=== PATIENT | female | born 1960 | race African-American/Black ===

== ENCOUNTER 2018-12-02 22:58 | Inpatient (IN) | payer OTHER, MEDICAID ==
[~2018-12-02] VITALS: Ht 157.5 cm; Wt 71.2 kg
[~2018-12-02 22:58] MED LIST: ASPI-1159 PO; GABA-531 PO; METO25TA6 PO; PHEN100C4 PO; PROAIR
[2018-12-03] MEDS ORDERED: IBUPROFEN 600MG TABLET PO ONE (05:00)
[2018-12-03 06:13] LABS: BASOPHILS % 0.5 % (0.0-2.0); EOSINOPHILS % 2.2 % (0.0-5.0); HEMATOCRIT. 36.7 % (36.0-48.0); HEMOGLOBIN. 12.3 g/dL (12.0-16.0); LYMPHOCYTES % 46.3 % (20.0-50.0); MEAN CORPUSCULAR HEMOGLOBIN 30.5 pg (28.0-32.0); MEAN CORPUSCULAR VOLUME 90.8 fL (81.0-99.0); MONOCYTES % 5.7 % (2.0-8.0); NEUTROPHILS % 45.3 % (40.0-76.0); PLATELET 245 x1000/uL (130-400); RED BLOOD CELL COUNT 4.04 mill/uL (4.2-5.4); RED CELL DISTRIBUTION WIDTH 12.5 % (11.6-14.6)
[2018-12-03 06:19] LABS: CHLORIDE 109 mEq/L (98-107)
[2018-12-03 06:23] LABS: ETHANOL BLOOD < 10 mg/dL
[2018-12-03] MEDS ORDERED: PHENYTOIN SODIUM EXTENDED 100MG CAPSULE PO SCH (06:45)
[2018-12-03] MEDS ORDERED: PHENYTOIN SODIUM EXTENDED 100MG CAPSULE PO ONE (08:00)
[2018-12-03] MEDS ORDERED: IBUPROFEN 600MG TABLET PO PRN (10:45)
[2018-12-03 12:00] VITALS: BP 131/82
[2018-12-03 12:15] VITALS: BP 131/82
[2018-12-03 15:43] LABS: CLARITY URINE CLEAR (CLEAR); COLOR URINE YELLOW (YELLOW); KETONES URINE NEGATIVE (NEGATIVE); LEUKOCYTE ESTERASE URINE NEGATIVE (NEGATIVE); NITRITE URINE NEGATIVE (NEGATIVE); OCCULT BLOOD URINE NEGATIVE (NEGATIVE); PROTEIN URINE NEGATIVE (NEGATIVE); SPECIFIC GRAVITY URINE 1.013 (1.005-1.030)
[2018-12-03 16:00] VITALS: BP 117/66
[2018-12-03 16:27] LABS: *BARBITURATES SCREEN URINE NEGATIVE (NEGATIVE); *BENZODIAZEPINES SCREEN URINE NEGATIVE (NEGATIVE); *COCAINE SCREEN URINE NEGATIVE (NEGATIVE)
[2018-12-03 16:28] LABS: *AMPHETAMINES SCREEN URINE NEGATIVE (NEGATIVE); CANNABINOID URINE SCREEN PRESUMTIVE POSITIVE (NEGATIVE); METHADONE URINE SCREEN NEGATIVE (NEGATIVE); OPIATES URINE SCREEN NEGATIVE (NEGATIVE); PHENCYCLIDINE URINE SCREEN NEGATIVE (NEGATIVE)
[2018-12-03] MEDS: ACETAMINOPHEN 325MG TABLET PO PRN (17:33)
[2018-12-03] MEDS ORDERED: LORAZEPAM 2MG/ML CPJ IV NR (19:15)
[2018-12-03 20:00] VITALS: BP 125/75
[2018-12-03] MEDS ORDERED: LORAZEPAM 2MG/ML CPJ IV PRN (21:00)
[2018-12-03] MEDS: PHENYTOIN SODIUM EXTENDED 100MG CAPSULE PO SCH (22:00)
[2018-12-03] MEDS: METOPROLOL TARTRATE 25MG TABLET PO SCH (22:00)
[2018-12-04] VITALS: BP 130/76
[2018-12-04] MEDS: GABAPENTIN 300MG CAPSULE PO SCH ×4 (00:02→22:40)
[2018-12-04] MEDS: VALPROATE SODIUM 500 MG in SODIUM CHLORIDE 0.9% 100 ML IV SCH ×2 (00:03→09:07)
[2018-12-04 04:00] VITALS: BP 143/76
[2018-12-04 06:58] LABS: CHLORIDE 109 mEq/L (98-107)
[2018-12-04 07:02] LABS: BASOPHILS % 0.4 % (0.0-2.0); EOSINOPHILS % 2.7 % (0.0-5.0); HEMATOCRIT. 35.9 % (36.0-48.0); HEMOGLOBIN. 12.3 g/dL (12.0-16.0); LYMPHOCYTES % 46.1 % (20.0-50.0); MEAN CORPUSCULAR HEMOGLOBIN 31.2 pg (28.0-32.0); MEAN CORPUSCULAR VOLUME 90.9 fL (81.0-99.0); MEAN PLATELET VOLUME 7.7 fl (7.4-10.4); MONOCYTES % 6.7 % (2.0-8.0); NEUTROPHILS % 44.1 % (40.0-76.0); PLATELET 254 x1000/uL (130-400); RED BLOOD CELL COUNT 3.94 mill/uL (4.2-5.4); RED CELL DISTRIBUTION WIDTH 12.2 % (11.6-14.6)
[2018-12-04 07:10] LABS: PHOSPHORUS 3.2 mg/dL (2.5-4.9)
[2018-12-04 07:13] LABS: CREATINE KINASE 153 IU/L (26-192)
[2018-12-04 08:00] VITALS: BP 115/70
[2018-12-04] MEDS: ASPIRIN 81MG TABLET PO SCH (09:07)
[2018-12-04] MEDS: PHENYTOIN SODIUM EXTENDED 100MG CAPSULE PO SCH (09:07)
[2018-12-04] MEDS: METOPROLOL TARTRATE 25MG TABLET PO SCH (09:08)
[2018-12-04] MEDS ORDERED: PHENYTOIN SODIUM 600 MG in SODIUM CHLORIDE 0.9% 100 ML IV SCH (11:30)
[2018-12-04 12:00] VITALS: BP 108/75
[2018-12-04 16:00] VITALS: BP 121/70
[2018-12-04 20:00] VITALS: BP 120/68
[2018-12-04] MEDS: LEVETIRACETAM 500MG TABLET PO SCH (20:39)
[2018-12-04] MEDS ORDERED: PHENYTOIN SODIUM EXTENDED 100MG CAPSULE PO SCH (21:00)
[2018-12-05] VITALS: BP 139/74
[2018-12-05 04:00] VITALS: BP 131/74
[2018-12-05] MEDS: GABAPENTIN 300MG CAPSULE PO SCH ×2 (06:50→13:50)
[2018-12-05 07:47] LABS: BASOPHILS % 0.4 % (0.0-2.0); EOSINOPHILS % 2.3 % (0.0-5.0); HEMATOCRIT. 38.9 % (36.0-48.0); HEMOGLOBIN. 12.9 g/dL (12.0-16.0); LYMPHOCYTES % 36.2 % (20.0-50.0); MEAN CORPUSCULAR HEMOGLOBIN 30.4 pg (28.0-32.0); MEAN CORPUSCULAR VOLUME 91.5 fL (81.0-99.0); MEAN PLATELET VOLUME 7.3 fl (7.4-10.4); MONOCYTES % 6.4 % (2.0-8.0); NEUTROPHILS % 54.7 % (40.0-76.0); PLATELET 250 x1000/uL (130-400); RED BLOOD CELL COUNT 4.25 mill/uL (4.2-5.4); RED CELL DISTRIBUTION WIDTH 12.2 % (11.6-14.6)
[2018-12-05 08:00] VITALS: BP 126/99
[2018-12-05 08:01] LABS: CHLORIDE 108 mEq/L (98-107)
[2018-12-05] MEDS: LEVETIRACETAM 500MG TABLET PO SCH (09:15)
[2018-12-05] MEDS: ASPIRIN 81MG TABLET PO SCH (09:15)
[2018-12-05] MEDS: METOPROLOL TARTRATE 25MG TABLET PO SCH (09:16)
[2018-12-05 12:00] VITALS: BP 140/83
[2018-12-05] MEDS: ACETAMINOPHEN 325MG TABLET PO PRN (12:39)
[2018-12-05 16:00] VITALS: BP 114/79
[2018-12-05 17:20] VITALS: BP 114/79
== END 2018-12-05 17:57 | disposition home or self-care (01) | DRG 101 ==
LOC: ER 22:58 → 6EST 12-03 10:38 → ENRESERV 12-03 11:07
PROVIDERS: ADMIT Family Medicine Adult Medicine; ATTEND Family Medicine Adult Medicine
DX: G40.909 Epilepsy, unspecified, not intractable, without status epilepticus (principal); I10 Essential (primary) hypertension; F17.200 Nicotine dependence, unspecified, uncomplicated; J45.909 Unspecified asthma, uncomplicated; Z86.73 Personal history of transient ischemic attack (TIA), and cerebral infarction without residual deficits; Z90.710 Acquired absence of both cervix and uterus; Z91.14 Patient's other noncompliance with medication regimen; Z88.2 Allergy status to sulfonamides
CPT/HCPCS: 36415; 70551; 71045; 80048; 80185; 80305; 80320; 82542; 82550; 82962; 83735; 84100; 84439; 84443; 84481; 93970; 96374; 97162; 97166; 99285; J1165; J2060; J3490; J7040; J7050; G0480

== ENCOUNTER 2018-12-28 00:36 | Emergency (ER) | payer OTHER, MEDICAID ==
[~2018-12-28] VITALS: Ht 152.4 cm; Wt 63.0 kg
[2018-12-28 06:42] LABS: BASOPHILS % 0.5 % (0.0-2.0); EOSINOPHILS % 1.1 % (0.0-5.0); HEMATOCRIT. 38.1 % (36.0-48.0); HEMOGLOBIN. 13.1 g/dL (12.0-16.0); LYMPHOCYTES % 35.7 % (20.0-50.0); MEAN CORPUSCULAR HEMOGLOBIN 31.3 pg (28.0-32.0); MEAN PLATELET VOLUME 7.6 fl (7.4-10.4); MONOCYTES % 6.1 % (2.0-8.0); NEUTROPHILS % 56.6 % (40.0-76.0); PLATELET 225 x1000/uL (130-400); RED BLOOD CELL COUNT 4.18 mill/uL (4.2-5.4); RED CELL DISTRIBUTION WIDTH 12.1 % (11.6-14.6)
[2018-12-28 06:48] LABS: CHLORIDE 112 mEq/L (98-107)
[2018-12-28 06:58] LABS: CARBAMAZEPINE < 0.5 ug/mL (4-12); VALPROIC ACID < 3.0 ug/mL (50-100)
[2018-12-28 07:30] VITALS: BP 127/79
[2018-12-28 07:52] LABS: CLARITY URINE CLEAR (CLEAR); COLOR URINE YELLOW (YELLOW); KETONES URINE NEGATIVE (NEGATIVE); LEUKOCYTE ESTERASE URINE NEGATIVE (NEGATIVE); NITRITE URINE NEGATIVE (NEGATIVE); OCCULT BLOOD URINE NEGATIVE (NEGATIVE); PH URINE 5.5 (4.5-8.0); PROTEIN URINE NEGATIVE (NEGATIVE); UROBILINOGEN URINE 0.2 E.U./dL (0.2-1.0)
[2018-12-28 08:07] LABS: *COCAINE SCREEN URINE NEGATIVE (NEGATIVE); METHADONE URINE SCREEN NEGATIVE (NEGATIVE)
[2018-12-28 08:08] LABS: *AMPHETAMINES SCREEN URINE NEGATIVE (NEGATIVE); *BARBITURATES SCREEN URINE NEGATIVE (NEGATIVE); *BENZODIAZEPINES SCREEN URINE NEGATIVE (NEGATIVE); CANNABINOID URINE SCREEN PRESUMTIVE POSITIVE (NEGATIVE); OPIATES URINE SCREEN NEGATIVE (NEGATIVE); PHENCYCLIDINE URINE SCREEN NEGATIVE (NEGATIVE)
== END 2018-12-28 08:10 | disposition left against medical advice (07) ==
LOC: ER 00:36
DX: R56.9 Unspecified convulsions (principal); T42.0X5A Adverse effect of hydantoin derivatives, initial encounter; Y92.9 Unspecified place or not applicable; I10 Essential (primary) hypertension; F17.200 Nicotine dependence, unspecified, uncomplicated; Z88.2 Allergy status to sulfonamides; Z79.82 Long term (current) use of aspirin; Z86.73 Personal history of transient ischemic attack (TIA), and cerebral infarction without residual deficits; Z90.710 Acquired absence of both cervix and uterus
CPT/HCPCS: 36415; 80156; 80165; 80185; 80305; 84484; 93005; 99284

== ENCOUNTER 2020-04-24 07:14 | Emergency (ER) | payer MEDICARE, MEDICAID ==
[~2020-04-24] VITALS: Ht 157.5 cm; Wt 65.0 kg
[~2020-04-24 07:14] MED LIST changes: -ASPI-1159 PO; +ASPI-1497 PO
[2020-04-24 09:15] LABS: COLOR URINE YELLOW (YELLOW); KETONES URINE NEGATIVE (NEGATIVE); LEUKOCYTE ESTERASE URINE NEGATIVE (NEGATIVE); NITRITE URINE NEGATIVE (NEGATIVE); OCCULT BLOOD URINE TRACE (NEGATIVE); PROTEIN URINE NEGATIVE (NEGATIVE)
[2020-04-24] MEDS ORDERED: TRAMADOL 50MG TABLET PO ONE (09:15)
[2020-04-24] MEDS ORDERED: PHENYTOIN SODIUM EXTENDED 100MG CAPSULE PO ONE (09:15)
[2020-04-24] MEDS ORDERED: ACETAMINOPHEN 325MG TABLET PO ONE (09:15)
[2020-04-24 09:16] LABS: CLARITY URINE SL HAZY (CLEAR)
[2020-04-24 09:54] LABS: *AMPHETAMINES SCREEN URINE NEGATIVE (NEGATIVE); *BENZODIAZEPINES SCREEN URINE NEGATIVE (NEGATIVE); *COCAINE SCREEN URINE NEGATIVE (NEGATIVE); CANNABINOID URINE SCREEN PRESUMTIVE POSITIVE (NEGATIVE); METHADONE URINE SCREEN NEGATIVE (NEGATIVE); OPIATES URINE SCREEN NEGATIVE (NEGATIVE)
[2020-04-24 09:56] LABS: PHENCYCLIDINE URINE SCREEN NEGATIVE (NEGATIVE)
[2020-04-24 10:03] LABS: *BARBITURATES SCREEN URINE NEGATIVE (NEGATIVE)
[2020-04-24 14:47] VITALS: BP 137/74
== END 2020-04-24 14:50 | disposition home or self-care (01) ==
LOC: ER 07:35
DX: T42.0X5A Adverse effect of hydantoin derivatives, initial encounter (principal); Y92.9 Unspecified place or not applicable; G40.909 Epilepsy, unspecified, not intractable, without status epilepticus; J45.909 Unspecified asthma, uncomplicated; I10 Essential (primary) hypertension; Z88.2 Allergy status to sulfonamides; Z86.73 Personal history of transient ischemic attack (TIA), and cerebral infarction without residual deficits; Z90.710 Acquired absence of both cervix and uterus
CPT/HCPCS: 36415; 80185; 80305; 81003; 81025; 82962; 93005; 99285

== ENCOUNTER 2020-07-01 15:24 | Emergency (ER) | payer MEDICARE, MEDICAID ==
[~2020-07-01] VITALS: Ht 157.5 cm; Wt 68.0 kg
[2020-07-01] MEDS ORDERED: TRAMADOL 50MG TABLET PO ONE (17:15)
[2020-07-01 20:25] VITALS: BP 152/85
== END 2020-07-01 20:27 | disposition home or self-care (01) ==
LOC: ER 15:35
DX: S52.591A Other fractures of lower end of right radius, initial encounter for closed fracture (principal); Y08.89XA Assault by other specified means, initial encounter; Y93.9 Activity, unspecified; Y92.9 Unspecified place or not applicable; J45.909 Unspecified asthma, uncomplicated; I10 Essential (primary) hypertension; R56.9 Unspecified convulsions; Z88.2 Allergy status to sulfonamides; Z79.82 Long term (current) use of aspirin; Z86.73 Personal history of transient ischemic attack (TIA), and cerebral infarction without residual deficits; Z90.710 Acquired absence of both cervix and uterus
CPT/HCPCS: 29125; 73090; 73130; 99284

== ENCOUNTER 2020-07-19 09:59 | Emergency (ER) | payer MEDICARE, MEDICAID ==
[~2020-07-19] VITALS: Ht 157.5 cm; Wt 67.0 kg
[2020-07-19 10:02] VITALS: BP 147/97
== END 2020-07-19 12:34 | disposition home or self-care (01) ==
LOC: ER 09:59
DX: Z48.00 Encounter for change or removal of nonsurgical wound dressing (principal); E11.9 Type 2 diabetes mellitus without complications; I10 Essential (primary) hypertension; J45.909 Unspecified asthma, uncomplicated; G40.909 Epilepsy, unspecified, not intractable, without status epilepticus; F12.10 Cannabis abuse, uncomplicated; Z86.73 Personal history of transient ischemic attack (TIA), and cerebral infarction without residual deficits; Z90.710 Acquired absence of both cervix and uterus; Z88.2 Allergy status to sulfonamides; Z79.82 Long term (current) use of aspirin
CPT/HCPCS: 29125; 73110; 99283